=== PATIENT | male | born 1965 | race Caucasian/White ===

== ENCOUNTER 2018-03-02 03:24 | Emergency (ER) | payer MEDICAID ==
[~2018-03-02] VITALS: Ht 177.8 cm; Wt 88.5 kg
[~2018-03-02 03:24] MED LIST: CEPHALEXIN500 MG PO; NORCO 5-325 TA1 EACH PO; NORCO 7.5-3251 EACH PO; PENICILLIN V P500 MG PO
[2018-03-02] MEDS ORDERED: CLINDAMYCIN HC300 MG PO (04:09)
[2018-03-02] MEDS ORDERED: TRAMADOL HCL50 MG PO (04:09)
== END 2018-03-02 04:23 | disposition home or self-care (01) ==
LOC: ED 03:24
DX: K08.89 Other specified disorders of teeth and supporting structures (principal); F17.200 Nicotine dependence, unspecified, uncomplicated
CPT/HCPCS: 99283